=== PATIENT | male | born 1985 | race Two or more races ===

== ENCOUNTER 2018-12-29 21:30 | Emergency (ER) | payer MEDICAID ==
[~2018-12-29] VITALS: Ht 172.7 cm; Wt 79.4 kg
[2018-12-29 22:00] VITALS: BP 120/78
--- NOTE | 2018-12-29 22:00 | NUR ---
ER Nurse Note: Pt walked in c/o skin rash that occured on 12/25. Per pt, pt went to primary care physican and was prescribed triamcinolone cream and is not effective. Pt stated the itchiness and rash got worse. Sporadic, red skin rash on bilateral arms. No drainage, no puss; skin intact. Will continue to montior.
--- NOTE | 2018-12-29 22:09 | Emergency Room Report ---
History of Present Illness General Chief Complaint: Skin Rash/Abscess Source: Patient Present Illness HPI This is a 33-year-old male with history of drug and alcohol abuse. He is currently in sober living. He presents with chief complaint of a rash. Initially told me his onset for 2 days but it looks much more chronic in that. He said he saw couple weeks ago and prescribed steroid cream. Not helping. Now spreading more and now there is redness and some slight discharge. Very itching. Unable to sleep because of that. No fever chills. No nausea no vomiting. Nothing made it better. Scratching made it worse. Allergies: Coded Allergies: No Known Allergies (Unverified , 12/29/18) Patient History Past Medical History: see triage record, old chart reviewed Past Surgical History: none Pertinent Family History: none Social History: Denies: smoking Immunizations: other Reviewed Nursing Documentation: PMH: Agreed; PSxH: Agreed Nursing Documentation-PMH Past Medical History: No Stated History Review of Systems Eye: Denies: eye pain, blurred vision ENT: Denies: ear pain, nose congestion, throat swelling Respiratory: Denies: cough, shortness of breath Cardiovascular: Denies: chest pain, palpitations Gastrointestinal: Denies: abdominal pain, diarrhea, nausea, vomiting Musculoskeletal: Denies: back pain, joint pain Skin: Reports: rash Neurological: Denies: headache, numbness Endocrine: Denies: increased thirst, increased urine Hematologic/Lymphatic: Denies: easy bruising All Other Systems: negative except mentioned in HPI Physical Exam Vital Signs Date Time Temp Pulse Resp B/P (MAP) Pulse Ox O2 Delivery O2 Flow Rate FiO2 12/29/18 21:43 98.1 91 18 120/78 (92) 98 Room Air Vitals normal Sp02 EP Interpretation: reviewed, normal General Appearance: well appearing, no apparent distress, alert Head: normocephalic, atraumatic Eyes: bilateral eye PERRL, bilateral eye EOMI ENT: hearing grossly normal, normal pharynx Neck: full range of motion, supple, no meningismus Respiratory: chest non-tender, lungs clear, normal breath sounds Cardiovascular #1: regular rate, rhythm, no murmur Gastrointestinal: normal bowel sounds, non tender, no mass, no organomegaly, no bruit, non-distended Musculoskeletal: back normal, gait/station normal, normal range of motion Neurologic: alert, oriented x3 Psychiatric: mood/affect normal Skin: other - He has diffuse erythematous rash on his body. One in his left forearm and left leg show erythema and slight discharge. Medical Decision Making Diagnostic Impression: Primary Impression: Eczema Qualified Codes: L30.9 - Dermatitis, unspecified Additional Impression: Cellulitis Qualified Codes: L03.90 - Cellulitis, unspecified ER Course Patient presents with eczema and now secondary cellulitis. No evidence of any necrotizing fasciitis or abscess seen. Will discharge home. Last Vital Signs Date Time Temp Pulse Resp B/P (MAP) Pulse Ox O2 Delivery O2 Flow Rate FiO2 12/29/18 21:43 98.1 91 18 120/78 (92) 98 Room Air Status: improved Disposition: HOME, SELF-CARE Condition: Stable Scripts Diphenhydramine Hcl* (BENADRYL*) 25 Mg Capsule 50 MG ORAL Q6H PRN for Itching, #30 CAP Prov: Alberto Dejesus MD 12/29/18 Prednisone* (PREDNISONE*) 20 Mg Tablet 40 MG ORAL DAILY, #8 TAB Prov: Alberto Dejesus MD 12/29/18 Clindamycin Hcl (CLINDAMYCIN HCL) 300 Mg Capsule 300 MG ORAL THREE TIMES A DAY, #21 CAP Prov: Alberto Dejesus MD 12/29/18 Additional Instructions: Follow-up with your doctor in 2-3 days for recheck. Return if symptoms worsen. Alberto Dejesus MD Dec 29, 2018 22:09
[2018-12-29] MEDS ORDERED: BENADRYL25 MG ORAL (22:12)
[2018-12-29] MEDS ORDERED: CLINDAMYCIN HC300 MG ORAL (22:12)
[2018-12-29] MEDS ORDERED: PREDNISONE20 MG ORAL (22:12)
[2018-12-29] MEDS ORDERED: Clindamycin 150mg cap ORAL ONE (22:15)
[2018-12-29 22:30] VITALS: BP 120/78
--- NOTE | 2018-12-29 22:30 | NUR ---
ER Nurse Note: Pt seen, treated, medically cleared for discharge by ERMD. Discharge instuctions and prescriptions given with repeat verbalization by pt. Emphasized to follow up with primay care provider. All orders completed per ERMD orders. Pt tolerated all meds. Pt a&ox4, VSS, no signs of distress. ID band removed. All questions answered per pt's questions. Pt left with all belongings, left with own transportation wtih friend.
== END 2018-12-29 22:30 | disposition home or self-care (01) ==
LOC: EMR 22:25
DX: L03.90 Cellulitis, unspecified (principal); L30.9 Dermatitis, unspecified
CPT/HCPCS: J7512; Z7502; 99282

== ENCOUNTER 2019-04-30 16:54 | Emergency (ER) | payer MEDICAID ==
[~2019-04-30] VITALS: Ht 172.7 cm; Wt 79.4 kg
[~2019-04-30 16:54] MED LIST: BENADRYL25 MG ORAL; CLINDAMYCIN HC300 MG ORAL; PREDNISONE20 MG ORAL
--- NOTE | 2019-04-30 16:56 | NUR ---
PT CALLED TO BE TRIAGED. PT LEFT TO RESTROOM
[2019-04-30 17:10] VITALS: BP 130/81
--- NOTE | 2019-04-30 17:10 | NUR ---
ED Nurse Note: PT. WALKED IN TO ER FROM HOME. PER PT., HE HAS BEEN HAVING RASHES ON HIS BLE AND BUE WITH ITHCINESS THAT COMES AND GO
--- NOTE | 2019-04-30 17:31 | Emergency Room Report ---
History of Present Illness General Chief Complaint: Skin Rash/Abscess Source: Significant Other Present Illness HPI 33-year-old male with no significant past medical history here complaining of intermittent appearance of a pruritic rash on both arms and legs times few days. Patient has been seen for similar issue last year and is requesting antibiotics believe that this is bacterial. Denies any recent travel, coming contact with allergens. Denies recent ingestion of any new food. Denies pain at the site of rash. Denies anaphylaxis, chest pain, shortness of breath, palpitation, headache and dizziness. Has not taken medication for symptom relief. Does not want to take any cream as reports in the past that has not helped. Patient has not followed up with intermission coordinator. Allergies: Coded Allergies: No Known Allergies (Unverified , 12/29/18) Patient History Past Medical History: see triage record Past Surgical History: unable to obtain Pertinent Family History: none Immunizations: UTD Reviewed Nursing Documentation: PMH: Agreed; PSxH: Agreed Nursing Documentation-PMH Past Medical History: No Stated History Review of Systems All Other Systems: negative except mentioned in HPI Physical Exam Vital Signs Date Time Temp Pulse Resp B/P (MAP) Pulse Ox O2 Delivery O2 Flow Rate FiO2 04/30/19 17:06 98.2 86 19 130/81 (97) 97 Room Air Sp02 EP Interpretation: reviewed, normal General Appearance: no apparent distress, alert, GCS 15, non-toxic Head: normocephalic, atraumatic Eyes: bilateral eye normal inspection, bilateral eye PERRL ENT: hearing grossly normal, normal pharynx, no angioedema, normal voice Neck: full range of motion, supple/symm/no masses Respiratory: chest non-tender, lungs clear, normal breath sounds, no rhonchi, no respiratory distress, no retraction, speaking full sentences Cardiovascular #1: regular rate, rhythm, no edema, no murmur Gastrointestinal: normal bowel sounds, non tender, soft, non-distended, no guarding, no rebound Genitourinary: no CVA tenderness Musculoskeletal: back normal, normal range of motion, gait/station normal, non- tender Neurologic: alert, motor strength/tone normal, oriented x3, sensory intact, responsive, speech normal Psychiatric: judgement/insight normal, memory normal, mood/affect normal, no suicidal/homicidal ideation Skin: rash - Allergic urticaria noted in bilateral arms Lymphatic: no adenopathy Medical Decision Making JOSE DE JESUS Attestation All my diagnosis and treatment plans were reviewed ad discussed with my supervising physician Dr. Dunne Diagnostic Impression: Primary Impression: Allergic urticaria Additional Impression: Cellulitis ER Course 33-year-old male with no significant past medical history here complaining of intermittent appearance of a pruritic rash on both arms and legs times few days. Patient has been seen for similar issue last year and is requesting antibiotics believe that this is bacterial. Denies any recent travel, coming contact with allergens. Denies recent ingestion of any new food. Denies pain at the site of rash. Denies anaphylaxis, chest pain, shortness of breath, palpitation, headache and dizziness. Has not taken medication for symptom relief. Does not want to take any cream as reports in the past that has not helped. Patient has not followed up with intermission coordinator. Ddx considered but are not limited to : Cellulitis, allergic urticaria, scabies , eczema Vital signs: are WNL, pt. is afebrile H&PE are most consistent with: Allergic urticaria, cellulitis ORDERS: Clindamycin, prednisone, Benadryl ED INTERVENTIONS: None required at this time. DISCHARGE: At this time pt. is stable for d/c to home. Will provide printed patient care instructions, and any necessary prescriptions. Care plan and follow up instructions have been discussed with the patient prior to discharge. Benadryl cannot be given to patient and patient reports that he is going to drive upon discharge. Patient follow-up with intermission coordinator and forest products gatherer, take medication as directed, if worsening symptoms return to the emergency room. Last Vital Signs Date Time Temp Pulse Resp B/P (MAP) Pulse Ox O2 Delivery O2 Flow Rate FiO2 04/30/19 17:06 98.2 86 19 130/81 (97) 97 Room Air Disposition: HOME, SELF-CARE Condition: Stable Scripts Prednisone* (PREDNISONE*) 20 Mg Tablet 40 MG ORAL DAILY for 5 Days, #10 TAB Prov: Nisha Berrios 04/30/19 Diphenhydramine Hcl* (BENADRYL*) 25 Mg Capsule 50 MG ORAL Q6H PRN for Itching, #30 CAP Prov: Nisha Berrios 04/30/19 Clindamycin Hcl (CLINDAMYCIN HCL) 300 Mg Capsule 300 MG ORAL THREE TIMES A DAY, #21 CAP Prov: Nisha Berrios 04/30/19 Patient Instructions: Cellulitis Additional Instructions: Take medication as directed, follow-up with your primary care provider, you need to be sent to a intermission coordinator and forest products gatherer, if worsening symptoms return to the emergency room Nisha Berrios Apr 30, 2019 17:31
[2019-04-30] MEDS ORDERED: CLINDAMYCIN HC300 MG ORAL (17:32)
[2019-04-30] MEDS ORDERED: BENADRYL25 MG ORAL (17:32)
[2019-04-30] MEDS ORDERED: PREDNISONE20 MG ORAL (17:32)
[2019-04-30 17:45] VITALS: BP 130/81
--- NOTE | 2019-04-30 17:45 | NUR ---
ER DISCHARGE NOTE: Patient is cleared to be discharged per ERMD, pt is aox4, on room air, with stable vital signs. pt was given dc and prescription instructions, pt was able to verbalize understanding, pt id band . pt is able to ambulate with steady gait. pt took all belongings.
== END 2019-04-30 17:45 | disposition home or self-care (01) ==
LOC: EMR 17:15
DX: L50.0 Allergic urticaria (principal); L03.90 Cellulitis, unspecified
CPT/HCPCS: 99282